=== PATIENT | female | born 1960 | race Caucasian/White ===

== ENCOUNTER 2024-08-02 13:54 | Emergency (ER) | payer MEDICARE, MEDICAID ==
[~2024-08-02] VITALS: Ht 167.6 cm; Wt 38.2 kg
[~2024-08-02 13:54] MED LIST: NO HOME MEDS
[2024-08-02 14:34] LABS: BASOPHILS # (AUTO) 0.1 X10'3 (0-0.2); BASOPHILS % (AUTO) 0.7 % (0-1); EOSINOPHILS % (AUTO) 0.2 % (0-6); HEMATOCRIT 41.3 % (35.0-45.0); LYMPHOCYTES # (AUTO) 1.9 X10'3 (1.1-4.8); LYMPHOCYTES % (AUTO) 18.2 % (21-51); MEAN CORPUSCULAR HEMOGLOBIN 30.5 PG (27.0-31.0); MEAN CORPUSCULAR HGB CONC 33.8 g/dL (33.0-36.5); MEAN PLATELET VOLUME 7.3 FL (7.4-10.4); MONOCYTES # (AUTO) 0.4 X10'3 (0-0.9); MONOCYTES % (AUTO) 4.2 % (2-12); NEUTROPHILS # (AUTO) 8.1 X10'3 (1.8-7.7); NEUTROPHILS % (AUTO) 76.7 % (42-75); PLATELET COUNT 235 X10'3 (140-440); RED BLOOD COUNT 4.59 X10'6 (4.20-5.60); RED CELL DISTRIBUTION WIDTH 16.2 % (11.5-14.5); WHITE BLOOD COUNT 10.5 X10'3 (4.5-11.0)
--- NOTE | 2024-08-02 14:44 | Physician Documentation ---
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 Patient reports due to nausea and vomiting. Patient reports the symptoms began after beginning a new pain medication patch prescribed for her cancer pain. Patient reports he has not begun chemotherapy or radiation treatment yet. Patient reports no injuries. Medication Reconciliation Allergies: Coded Allergies: No Known Allergies (Unverified , 08/02/24) Scheduled PRN ONDANSETRON ODT 4mg tablet (Ondansetron Odt), 1 TAB PO Q6H PRN PRN for nausea/vomiting Miscellaneous Medications Home Med List (No Home Medications), (Reported) Past Medical History Past Medical History: *CANCER* (Skin) Review of Systems ROS Nausea, vomiting, diarrhea, and weakness as stated above in the HPI, otherwise all systems are reviewed and negative. Physical Exam Vital Signs: Temperature: 98.4, Source: Temporal, Heart Rate: 70, Respiratory Rate: 12, BP: 165/111, Pulse Oximetry: 97, Weight: 38.180 Oxygen Flow Rate: 0 Physical Exam VITALS: Reviewed and as above. GENERAL: Alert and oriented, emaciated and ill-appearing HEENT: Erosive lesion to nose and surrounding tissues including upper lip, no tenderness to head or neck including no central C-spine tenderness RESPIRATORY: No increased work of breathing, no respiratory distress, speaking in full sentences CV: Regular rate and rhythm no murmur BACK: Nontender to palpation, no central spinal tenderness GI: Nondistended, soft, nontender, no rebound, no guarding bowel sounds present MUSCULOSKELETAL: Limbs nontender to palpation SKIN: Warm and dry, small amount of dried fecal matter on skin of posterior calves Progress Results/Orders Results/Orders Orders - ANJUM IVORY Electrocardiogram (08/02/24 14:45) Po Challenge (08/02/24 ) Gait Test (08/02/24 ) Completed Orders - ANJUM IVORY Cbc/Diff (08/02/24 14:06) Lipase (08/02/24 14:06) CMP (08/02/24 14:06) Ondansetron Inj. (Zofran 4mg/2ml Vial) (08/02/24 15:05) Normal Saline 1000ml (Sodium Chloride 10 (08/02/24 15:05) * Straight Cath* (08/02/24 16:20) Vital Signs 08/02/24 08/02/24 08/02/24 08/02/24 14:06 14:59 15:59 16:18 Temp 98.4 Pulse 70 75 60 Resp 12 14 12 B/P (MAP) 165/111 182/112 (135) 183/97 (125) Pulse Ox 97 97 97 O2 Flow Rate 0 0 0 08/02/24 18:13 Temp 98.4 Pulse 64 Resp 18 B/P (MAP) 140/86 Pulse Ox 94 Laboratory Tests Test 08/02/24 14:25 White Blood Count 10.5 Red Blood Count 4.59 Hemoglobin 14.0 Hematocrit 41.3 Mean Corpuscular Volume 90.0 Mean Corpuscular Hemoglobin 30.5 Mean Corpuscular Hemoglobin Concent 33.8 Red Cell Distribution Width 16.2 H Platelet Count 235 Mean Platelet Volume 7.3 L Neutrophils (%) (Auto) 76.7 H Lymphocytes (%) (Auto) 18.2 L Monocytes (%) (Auto) 4.2 Eosinophils (%) (Auto) 0.2 Basophils (%) (Auto) 0.7 Neutrophils # (Auto) 8.1 H Lymphocytes # (Auto) 1.9 Monocytes # (Auto) 0.4 Eosinophils # (Auto) 0.0 Basophils # (Auto) 0.1 CBC Comment Sodium Level 141 Potassium Level 3.5 Chloride Level 105 Carbon Dioxide Level 24.7 Anion Gap 11 Blood Urea Nitrogen 37 H Creatinine 2.02 H Estimated GFR/1.73 m2 25 BUN/Creatinine Ratio 18.3 Glucose Level 102 Calcium Level 9.0 Total Bilirubin 0.4 Aspartate Amino Transf (AST/SGOT) 17 Alanine Aminotransferase (ALT/SGPT) 18 Alkaline Phosphatase 86 Total Protein 7.0 Albumin 3.0 L Globulin 4.0 Albumin/Globulin Ratio 0.8 L Lipase 32 Chemistry Comments EKG/XRAY/CT/US/VASC/MRI EKG : Additional Comment EKG at 1502 interpreted by myself as sinus rhythm at a rate of 72, normal axis, isolated ST depression in V4, artifact hinders further interpretation Medical Decision Making Findings This 64-year-old female with history of skin cancer presented by EMS after being found on the ground by her hogshead press operator, patient reported feeling of generalized weakness along with two days of nausea, vomiting, and diarrhea with symptoms beginning after beginning a new pain patch. Physical exam demonstrated very emaciated appearing patient, family member at bedside reported concern the patient was not taking care of herself, though patient reported and she felt she was capable of caring for herself and would go to her sister's house if she felt like she could not take care of herself. Otherwise her physical exam was benign without pain or signs of injury, lab work did demonstrate significant dehydration patient was provided IV and oral rehydration along with dose of Zofran for nausea, patient responded very well to use medications and reported feeling significantly better, I discussed with patient admission for continued IV rehydration and pain medication optimization. Patient has a very strong desire to leave even though I have advised her that she would benefit from inpatient admission. Patient is threatening to walk out the door prior to all labs back, patient will be prescribed Zofran to help with nausea and vomiting at home and has been advised to follow up as soon as possible with her primary care provider for medication changes and medication management of her nausea and vomiting outpatient. Patient reports that she does have a follow up appointment coming up soon with her primary care provider and will follow up. Patient is hemodynamically stable and appropriate for outpatient follow up. Patient provided careful return to care precautions which she verbalized understanding of. EKG had been ordered though I was not presented with results of EKG until after patient had discharged, there was some evidence of myocardial ischemia in lead V4 with ST depression, patient was aware that we had not finished her full evaluation as some labs and tests were still pending, discharge was provided due to patient insistent on leaving including attempting to walk out of the emergency department with an IV in place. Differential Dx:Considerations: Include: anemia, CVA, dehydration, dysrhythmia, electrolyte imbalance, encephalopathy, hypoglycemia, hypotension, hypovolemia, myocardial infarction, renal failure, TIA Departure Disposition: HOME / SELF CARE / HOMELESS Impression: Primary Impression: Dehydration Additional Impression: Nausea vomiting and diarrhea Condition: Improved Discharge Instructions: Dehydration, Adult Additional Instructions: I do believe you would benefit from being admitted to the hospital though I r espect her wishes to go home I have prescribed you some Zofran to help with your nausea. Please use the prescribed Zofran to help maintain proper oral intake, you are very dehydrated today, please continue to drink non caffeinated and nonalcoholic fluids to rehydrate yourself. Please follow up with your primary care provider in the next few days. Please return to the emergency department for any new or worsening concerning symptoms. Referrals: NO PRIMARY CARE PROVIDER (PCP) Prescriptions ONDANSETRON ODT 4mg tablet (ONDANSETRON ODT) 4 Mg Tab.rapdis 1 TAB PO Q6H PRN PRN for nausea/vomiting for 4 Days, #16 TAB 0 Refills Prov: ANJUM IVORY 08/02/24 Education Educated: Patient Educated regarding: diagnosis, treatment, prognosis, need for follow up Signature Scribe Signature: No scribe Attestation: The note accurately reflects work and decisions made by me.ERMA Naav 08/03/24 02:05 ANJUM IVORY August 02, 2024 14:44
[2024-08-02 14:55] LABS: ALANINE AMINOTRANSFERASE 18 U/L (12-78); ALBUMIN/GLOBULIN RATIO 0.8 (1.1-1.5); ALKALINE PHOSPHATASE 86 IU/L (46-116); ANION GAP 11 (8-16); ASPARTATE AMINO TRANSFERASE 17 U/L (10-37); BILIRUBIN,TOTAL 0.4 MG/DL (0.1-1.0); BLOOD UREA NITROGEN 37 MG/DL (7-18); BUN/CREATININE RATIO 18.3 (10.0-20.0); CHLORIDE 105 MMOL/L (99-107); CREATININE 2.02 MG/DL (0.40-0.90); GLUCOSE 102 MG/DL (70-104); LIPASE 32 U/L (16-77); SODIUM 141 MMOL/L (135-145); TOTAL CARBON DIOXIDE 24.7 MMOL/L (24-32); eCRCL 17 ML/MIN; eGFR 25 ML/MIN
[2024-08-02 14:57] LABS: POTASSIUM 3.5 MMOL/L (3.5-5.1)
[2024-08-02] MEDS: normal saline 1000ML IV soln IVB ONE (15:47)
[2024-08-02] MEDS: ondansetron/PF 4mg/2ml inj IV ONE (15:47)
[2024-08-02] MEDS ORDERED: ONDA-243 PO (17:52)
[2024-08-02 18:13] VITALS: BP 140/86; PULSE 64; RESP 18; TEMP 98.4; O2SAT 94
--- NOTE | 2024-08-03 13:01 | ELECTROCARDIOGRAPH REPORT ---
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 Serafin Babcock Measurements Intervals [place] Rate: 72 P: 79 VA: 167 QRS: 75 QRSD: 107 T: -88 QT: 373 QTc: 409 Interpretive Statements Sinus rhythm Biatrial enlargement LVH with secondary repolarization abnormality Probable inferior infarct, old Baseline wander in lead(s) V2 Electronically Signed On 08-03-2024 13:43:[address] Serafin Babcock Please click the below link to view image of tracing.
== END 2024-08-02 18:05 | disposition home or self-care (01) ==
LOC: ER 13:55
DX: E86.0 Dehydration (principal); R11.2 Nausea with vomiting, unspecified
CPT/HCPCS: 36415; 80053; 83690; 85025; 93005; 96361; 96374; 99284; J2405; J7030